=== PATIENT | male | born 1975 | race Caucasian/White ===

== ENCOUNTER 2017-01-22 05:50 | Inpatient (IN) | payer OTHER ==
[2017-01-17 11:59] VITALS: BMI 30.6
--- NOTE | 2017-01-22 06:35 | HP ---
History & Physical Update - History History: No Change - Physical Physical: No Change - Assessment Assessment: No Change - Plan Plan: No Change (s/p Laminectomy 06/22/16. Still c/o recurrent back problems with radicular type pain. Here today for elective L4-L5 fusion. This is my first time seeing the patient asociated with this visit. Introduced myself and informed him that I will be assisting Dr. Russ with todays procedure. Patient is fine with that.)
[2017-01-22] MEDS ORDERED: CEFAZOLIN 2 GM in DEXTROSE 5%-WATER - 100 ML IVPB ONE (06:36)
[2017-01-22] MEDS ORDERED: oxyCODONE HCL 10 MG SUSTAINED ACTING TABLET PO STA (06:36)
[2017-01-22] MEDS ORDERED: GABAPENTIN 300 MG CAPSULE (FP) PO ONE (06:50)
[2017-01-22] MEDS ORDERED: oxyCODONE HCL 10 MG SUSTAINED ACTING TABLET ONE (06:52)
[2017-01-22] MEDS ORDERED: THROMBIN (BOVINE) 5,000 UNIT VIAL TP ONE (07:32)
[2017-01-22] MEDS ORDERED: LIDOCAINE 1%-EPI 1:100,000 30 ML MDV IJ ONE (07:33)
[2017-01-22] MEDS ORDERED: BUPIVACAINE HCL/PF 2.5 MG/ML - 30 ML VIAL IJ ONE (07:33)
[2017-01-22] MEDS ORDERED: GUM MASTIC/STORAX/MSAL/ALCOHOL 1 DRP DROPSBTL MC ONE (07:33)
[2017-01-22] MEDS ORDERED: MIDAZOLAM HCL 2 MG/2 ML SINGLE DOSE VIAL ONE ×2 (08:11→08:49)
[2017-01-22] MEDS ORDERED: BUPIVACAINE HCL/PF 0.5% (5MG/ML) 10 ML VIAL ONE (08:42)
[2017-01-22] MEDS ORDERED: LIDOCAINE 1%/EPI 1:100000 (50 ML MULTI DOSE VIAL) INF ONE (09:10)
[2017-01-22] MEDS ORDERED: BUPIVACAINE HCL/PF 0.25% (2.5MG/ML) 10 ML VIAL IJ ONE (10:49)
--- NOTE | 2017-01-22 11:03 | OP ---
Operative Note - Note: Operative Date: 01/22/17 Pre-Operative Diagnosis: L4-L5 spinal stenosis with re-herniation Operation: TLIF L4-L5 under neuromonitoring Post-Operative Diagnosis: Same as Pre-op Surgeon: Brandin Russ Sales Correspondence Clerk: Jim Finn Anesthesiologist/DOCUMENT PROCESSING SPECIALIST: Diomedes Hsieh Anesthesia: Spinal Estimated Blood Loss (mls): 20 Fluid Volume Replaced (mls): 700 Operative Report Dictated: Yes
[2017-01-22] MEDS ORDERED: oxyCODONE HCL 5 MG TABLET PO PRN (11:04)
[2017-01-22] MEDS ORDERED: morphine CARPU-JECT 4 MG/1 ML DISP.SYRIN IVPUSH PRN (11:04)
[2017-01-22] MEDS ORDERED: ACETAMINOPHEN 325 MG TABLET (FP) PO PRN (11:04)
--- NOTE | 2017-01-22 11:04 | SURG ---
Surgery Feather Sawyer Note Feather Sawyer: Jim Finn PA-C Date of Service: 01/22/17 Diagnosis: L4-L5 spinal stenosis with re-herniation Procedure: Transforaminal lumbar interbody fusion L4-L5, allograft implant under neuromonitoring I was present for the entirety of the operative procedure. For further detail, please refer to operative report. Visit type - Case Type Case Type: Scheduled Admission - New patient This patient is new to me today: Yes Date on this admission: 01/22/17
[2017-01-22] MEDS ORDERED: LACTATED RINGERS SOLUTION 1,000 ML IV SCH (11:15)
[2017-01-22] MEDS: ACETAMINOPHEN 1000 MG/100 ML VIAL (NON FORMULARY) IVPB SCH ×3 (11:21→23:55)
[2017-01-22] MEDS ORDERED: diazePAM 5 MG TABLET ONE (12:13)
[2017-01-22] MEDS ORDERED: ONDANSETRON 4 MG/2 ML VIAL IVPB PRN (13:30)
[2017-01-22] MEDS ORDERED: diazePAM 5 MG TABLET PO ONE (14:00)
[2017-01-22] MEDS ORDERED: GABAPENTIN 300 MG CAPSULE (FP) PO SCH (14:00)
[2017-01-22] MEDS: GABAPENTIN 300 MG CAPSULE (FP) PO SCH ×2 (14:26→21:07)
[2017-01-22] MEDS: oxyCODONE HCL 5 MG TABLET PO PRN ×2 (14:29→21:07)
[2017-01-22] MEDS: CEFAZOLIN (PRE-DOCKED) 50 ML IVPB SCH (18:24)
[2017-01-22] MEDS: KETOROLAC TROMETHAMINE 30 MG/1 ML VIAL IVPUSH PRN (18:24)
--- NOTE | 2017-01-22 20:49 | OP ---
DATE OF OPERATION: 01/22/2017 PREOPERATIVE DIAGNOSES: 1. Reherniation, L4-5. 2. Degenerative disk disease. POSTOPERATIVE DIAGNOSES: 1. Reherniation, L4-5. 2. Degenerative disk disease. PROCEDURE PERFORMED: 1. Transforaminal lumbar interbody fusion, L4-5. 2. Placement of prosthetic cage. 3. Placement of instrumentation. 4. Revision Hemilaminectomy. SURGEON: Brandin Russ MD COIL WINDER: FREDDIE Cisneros ESTIMATED BLOOD LOSS: 50 mL. IV FLUIDS: Per Anesthesia. ANESTHESIA: Spinal. COMPLICATIONS: There were none. DISPOSITION: Patient brought to the PACU in stable condition. INDICATION FOR SURGERY: The patient is a 41-year-old gentleman who has been suffering from pain from his back down his right leg. He had previously undergone laminectomy at L4-5 successfully. Six months after surgery, he began to have pain again from his back down to his right leg. He had tried physical therapy as well as medications. Unfortunately his pain continued to persist. X-rays and MRI were completed, which noted that he had reherniation at L4-5. At this point I had a discussion with him regarding future options including injections, risks of surgery. Patient elected to have surgery. I had a discussion with him regarding what type of surgery. We discussed revision laminectomy versus a fusion. Patient was also noted to have significant signs of degeneration at L4-5. Risks, benefits, and alternatives were discussed and the patient consented to surgery. OPERATIVE NOTE: The patient was brought in to the operating room by anesthesia staff. After appropriate patient identification was performed, spinal anesthesia was given. The patient was able to position himself prone onto the OR table. The C -arm was brought in. The L4 and L5 pedicles were marked off. Then 10 mL of lidocaine with epinephrine was injected into his back at this time. His back was prepped and draped in a sterile manner. At this point, time-out was completed, and incisions were made bilaterally over the L4 and L5 pedicles. Dissection was carried down to the fascia. The fascia was split open at this time. Under C-arm guidance, trocars were advanced into both the L4 and L5 pedicles. Through the trocars, a wire was inserted. The trocars were removed. Over the wire, a tap was performed and screws were inserted. On the right-hand side, retractor blades were set up to expose the L4-5 facet joint. It was removed with a bur and osteotome. The disk was entered using a series of pituitaries and Kerrisons and curettes. A diskectomy was completed. The endplates were decorticated at this time. Bone graft was lay down. A size 8 x 35 cage was placed in. Tulip heads were placed over the screws. A shannan was measured and placed in. Caps were placed on. Compression and final tightening was performed. On the left-hand side, a shannan was measured and placed in, caps were placed on, final tightening was performed. All extra instrumentation was removed at this time. AP and lateral x-rays confirmed the instrumentation to be in good position. The fascia was closed with a number 1 Vicryl suture. The subcutaneous tissue was closed with 2-0 Vicryl suture. Skin was closed with 3-0 Monocryl suture. Dermabond was applied, a sterile dressing was applied. The patient was placed supine on the OR bed and brought to the PACU in stable condition. The patient was able to flex/ex his toes in the PACU. Geovani [id number] MTDD
[2017-01-22] MEDS: CYCLOBENZAPRINE HCL 10 MG TABLET (FP) PO PRN (21:07)
[2017-01-23] MEDS: CEFAZOLIN (PRE-DOCKED) 50 ML IVPB SCH ×2 (01:44→09:11)
[2017-01-23] MEDS: GABAPENTIN 300 MG CAPSULE (FP) PO SCH (05:40)
[2017-01-23] MEDS: ACETAMINOPHEN 1000 MG/100 ML VIAL (NON FORMULARY) IVPB SCH (05:41)
[2017-01-23 06:00] VITALS: BP 121/76; PULSE 79; TEMP 98.4
--- NOTE | 2017-01-23 07:10 | DS ---
[id number] unassisted and continues to do so. Pain management via non- narctoic and narcotic. Tolertaing PO diet. Voiding spontaneously. Denies n/v/f/c, CP or SOB. OBJECTIVE: Last Vital Signs Temp Pulse Resp BP Pulse Ox 98.4 F 79 18 121/76 96 01/23/17 05:59 01/23/17 05:59 01/23/17 05:59 01/23/17 05:59 01/23/17 05:59 PE GENERAL: The patient is awake, alert, oriented, in nad HEAD: NC. AT EYES: PERRL, extraocular movements intact, sclera anicteric, conjunctiva clear. NECK: Trachea midline, full range of motion, supple. LUNGS: CTA b/l anteriorly HEART: RRR ABDOMEN: Soft, NT. ND. EXTREMITIES: 2+ pulses, warm, well-perfused, no edema. NEUROLOGICAL: CN II - XII grossly intact. Normal speech, ambulating unassisted PSYCH: Normal mood, normal affect. HOSPITAL COURSE: Date of Admission:01/22/17 Date of Discharge: 01/23/17 The patient was admitted to the Med-Surg Unit after an elective repair of their L4-L5 spinal stenosis with reherniation. Now, s/p TLIF L4-L5. The day of surgery, the patient ambulated the hallways without assistance. Narcotic and non-narcotic pain management control was achieved with an oral and IV approach. POD #1, an xray was obtained and confirmed hardware placement at L4 -L5 level, no fractures or dislocations. Caroline-operative IV ABX were administered. DVT prophylaxis was achieved with SCDs and early ambulation. The patient ambulated with Physical Therapy and no services were recommended upon discharge. A escript for muscle relaxants were sent to the patient's pharmacy. [place] CERTIFIED PHLEBOTOMY TECHNICIAN checked and he last had a script for Percocet 10/325 (120 dispensed) on 01/11. Patient informes that he still has plenty left. The discharge instructions and an oral pain management plan were reviewed with the patient. All questions answered. Above plan discussed with Dr. Russ and agreed . Minutes to complete discharge: 15 <Jim Finn P - Last Filed: 01/23/17 07:02> Physical Exam: SUBJECTIVE: Patient seen and examined OBJECTIVE: Vital Signs Temperature 98.4 F 05/09/17 05:59 Pulse Rate 79 01/23/17 05:59 Respiratory Rate 18 01/23/17 05:59 Blood Pressure 121/76 01/23/17 05:59 O2 Sat by Pulse Oximetry (%) 96 01/23/17 05:59 PHYSICAL EXAM GENERAL: The patient is awake, alert, and fully oriented, in no acute distress. HEAD: Normal with no signs of trauma. EYES: PERRL, extraocular movements intact, sclera anicteric, conjunctiva clear. ENT: Ears normal, nares patent, oropharynx clear without exudates, moist mucous membranes. NECK: Trachea midline, full range of motion, supple. LUNGS: Breath sounds equal, clear to auscultation bilaterally, no wheezes, no crackles, no accessory muscle use. HEART: Regular rate and rhythm, S1, S2 without murmur, rub or gallop. ABDOMEN: Soft, nontender, nondistended, normoactive bowel sounds, no guarding, no rebound, no hepatosplenomegaly, no masses. EXTREMITIES: 2+ pulses, warm, well-perfused, no edema. NEUROLOGICAL: Cranial nerves II through XII grossly intact. Normal speech, gait not observed. PSYCH: Normal mood, normal affect. SKIN: Warm, dry, normal turgor, no rashes or lesions noted. LABS CBC,CMP WBC 10.9 K/mm3 (4.0-10.8) H 01/23/17 08:05 RBC 4.52 M/mm3 (4.00-5.60) 01/23/17 08:05 Hgb 13.7 GM/dl (11.7-16.9) 01/23/17 08:05 Hct 40.2 % (35.4-49) 01/23/17 08:05 MCV 88.8 fl (80-96) 01/23/17 08:05 MCHC 34.1 g/dl (32.0-35.9) 01/23/17 08:05 RDW 12.0 % (11.9-15.9) 01/23/17 08:05 Plt Count 166 K/MM3 (134-434) 01/23/17 08:05 MPV 8.7 fl (7.5-11.1) 01/23/17 08:05 Sodium 138 mmol/L (136-145) 01/23/17 08:05 Potassium 3.8 mmol/L (3.5-5.1) 01/23/17 08:05 Chloride 105 mmol/L (98-107) 01/23/17 08:05 Carbon Dioxide 26 mmol/L (22-28) 01/23/17 08:05 Anion Gap 7 (8-16) L 01/23/17 08:05 BUN 16 mg/dl (7-18) 01/23/17 08:05 Creatinine 0.9 mg/dl (0.6-1.3) 01/23/17 08:05 Random Glucose 133 mg/dl (74-106) H 01/23/17 08:05 Calcium 8.7 mg/dl (8.4-10.2) 01/23/17 08:05 HOSPITAL COURSE: Date of Admission:01/22/17 Date of Discharge: 01/23/17 The patient was admitted to the Med-Surg Unit after an elective repair of their L4-5 Stenosis. The day of surgery, the patient ambulated the hallways with assistance. Narcotic and non-narcotic pain management control was achieved with an oral and IV approach. POD #1, the surgical drain was removed fully intact and without incident. An xray was obtained and confirmed hardware placement at L4-5, no fractures or dislocations. Caroline-operative IV ABX were administered. DVT prophylaxis was achieved with SCDs and early ambulation. The patient ambulated with Physical Therapy and no services were recommended upon discharge. Narcotic scripts and or muscle relaxants were checked with [facility] CERTIFIED PHLEBOTOMY TECHNICIAN prior to escibe. The discharge instructions and an oral pain management plan were reviewed with the patient. All questions answered. Above plan discussed with Dr. Russ and agreed. <Brandin Russ - Last Filed: 01/23/17 09:25> Visit type - Case Type Case Type: Scheduled Admission <Jim Finn - Last Filed: 01/23/17 07:02>
[2017-01-23] MEDS: KETOROLAC TROMETHAMINE 30 MG/1 ML VIAL IVPUSH PRN (07:21)
[2017-01-23] MEDS: oxyCODONE HCL 5 MG TABLET PO PRN (07:21)
[2017-01-23 08:31] LABS: CALCIUM 8.7 mg/dl (8.4-10.2); CREATININE 0.9 mg/dl (0.6-1.3)
[2017-01-23 08:32] LABS: MCH 30.3 pg (25.7-33.7); MCHC 34.1 g/dl (32.0-35.9); MEAN CELL VOLUME 88.8 fl (80-96); MEAN PLT VOLUME 8.7 fl (7.5-11.1); PLATELET COUNT 166 K/MM3 (134-434); WHITE BLOOD COUNT 10.9 K/mm3 (4.0-10.8)
[2017-01-23] MEDS: CYCLOBENZAPRINE HCL 10 MG TABLET (FP) PO PRN (09:12)
== END 2017-01-23 13:00 | disposition home or self-care (01) | DRG 460 ==
LOC: FM/S 05:50
PROVIDERS: ADMIT Orthopaedic Surgery Orthopaedic Surgery of the Spine; ATTEND Orthopaedic Surgery Orthopaedic Surgery of the Spine
PROC: 0SB20ZZ Excision of Lumbar Vertebral Disc, Open Approach (ICD-10-PCS; 2017-01-22)
PROC: 0SG00AJ Fusion of Lumbar Vertebral Joint with Interbody Fusion Device, Posterior Approach, Anterior Column, Open Approach (ICD-10-PCS; principal; 2017-01-22 08:00)
DX: M51.36 Other intervertebral disc degeneration, lumbar region (principal)
CPT/HCPCS: 36415; 72100-TC; 80048; 85027; 94010; 94760; 97116-GP; 97161-GP